=== PATIENT | female | born 1995 | race Two or more races ===

== ENCOUNTER → 2017-12-31 | Outpatient (CLI) | payer MEDICAID ==
[~2017-12-31] MED LIST: GLYB1.257 PO; PREN-96 PO
[2017-12-31 08:23] LABS: Lymphocytes # (auto) 2.4 uL; White Blood Cell 10.1 10^3/uL (4.4-10.8)
[2017-12-31 08:25] LABS: Basophils # (auto) 0 uL; Basophils % (auto) 0.4 % (0.0-2.0); Eosinophils # (auto) 0.1 uL; Eosinophils % (auto) 1.2 % (0.0-7.0); Hematocrit 35.8 % (36.0-46.0); Hemoglobin 11.9 g/dL (12.2-16.2); Lymphocytes % (auto) 24.3 % (10.0-50.0); Mean Corpuscular Hemoglobin 26.7 pg (28.0-32.0); Mean Corpuscular Hgb Conc. 33.4 g/dL (32.0-36.0); Mean Corpuscular Volume 80.1 fL (80.0-100.0); Monocytes # (auto) 0.5 uL; Monocytes % (auto) 4.5 % (0.0-12.0); Neutrophils % (auto) 69.6 % (37.0-80.0); Platelet Count (auto) 272 10^3/uL (140-450); Red Blood Cells 4.47 10^6/uL (4.0-5.20); Red Cell Distribution Width 14.3 % (11.8-14.3)
[2017-12-31 10:18] LABS: Alcohol, Urine < 3.0 mg/dL (0-5); Amphetamine Screen, Urine NEGATIVE (NEGATIVE); Barbiturate Scree,Urine NEGATIVE (NEGATIVE); Benzodiazephine Screen, Urine NEGATIVE (NEGATIVE); Cannabinoid Screen, Urine NEGATIVE (NEGATIVE); Cocaine Screen, Urine NEGATIVE (NEGATIVE); Opiate Scree,Urine NEGATIVE (NEGATIVE); Phencyclidine Screen, Urine NEGATIVE (NEGATIVE); RUBELLA Negative
== END | disposition home or self-care (01) ==
LOC: LAB 07:53
PROVIDERS: ATTEND Obstetrics & Gynecology
DX: Z34.80 Encounter for supervision of other normal pregnancy, unspecified trimester (principal); Z20.2 Contact with and (suspected) exposure to infections with a predominantly sexual mode of transmission; Z3A.00 Weeks of gestation of pregnancy not specified
CPT/HCPCS: 36415; 80307; 82951; 83036; 85025; 86703; 86762; 86850; 86900; 86901; 87086; 87340; 87591

== ENCOUNTER 2018-01-03 12:15 | Observation (INO) | payer MEDICAID | END 2018-01-03 13:25 | disposition home or self-care (01) | DRG 566 | LOC: LDRP 12:15 | PROVIDERS: ADMIT Specialist; ATTEND Specialist | DX: O24.419 Gestational diabetes mellitus in pregnancy, unspecified control (principal); O60.03 Preterm labor without delivery, third trimester; Z3A.31 31 weeks gestation of pregnancy | CPT/HCPCS: 59025; 81002; 82948; 82962; G0378 ==

== ENCOUNTER 2018-01-12 11:45 | Observation (INO) | payer MEDICAID ==
[2018-01-12] MEDS ORDERED: GLYB1.257 PO (12:11)
[2018-01-12] MEDS ORDERED: PREN-96 PO (12:12)
== END 2018-01-12 12:55 | disposition home or self-care (01) | DRG 566 ==
LOC: LDRP 11:45 → INTOOBSV 11:45
PROVIDERS: ADMIT Specialist; ATTEND Specialist
DX: O24.410 Gestational diabetes mellitus in pregnancy, diet controlled (principal); O99.323 Drug use complicating pregnancy, third trimester; F12.90 Cannabis use, unspecified, uncomplicated; Z3A.32 32 weeks gestation of pregnancy
CPT/HCPCS: 59025; 76818; 81002; 82962; G0378

== ENCOUNTER 2018-01-16 09:37 | Observation (INO) | payer MEDICAID | END 2018-01-16 11:45 | disposition home or self-care (01) | DRG 566 | LOC: LDRP 09:37 | PROVIDERS: ADMIT Obstetrics & Gynecology; ATTEND Obstetrics & Gynecology | DX: O24.419 Gestational diabetes mellitus in pregnancy, unspecified control (principal); O60.03 Preterm labor without delivery, third trimester; O99.323 Drug use complicating pregnancy, third trimester; F12.90 Cannabis use, unspecified, uncomplicated; Z3A.33 33 weeks gestation of pregnancy | CPT/HCPCS: 59025; 76818; 81002; 82948; 82962; G0378 ==

== ENCOUNTER → 2018-02-06 | Outpatient (CLI) | payer MEDICAID ==
[2018-02-06 10:52] LABS: Eosinophils # (auto) 0.1 uL; Monocytes # (auto) 0.5 uL; White Blood Cell 9.8 10^3/uL (4.4-10.8)
[2018-02-06 10:55] LABS: Basophils # (auto) 0 uL; Basophils % (auto) 0.4 % (0.0-2.0); Eosinophils % (auto) 0.8 % (0.0-7.0); Hematocrit 36.8 % (36.0-46.0); Hemoglobin 11.9 g/dL (12.2-16.2); Lymphocytes # (auto) 2.8 uL; Lymphocytes % (auto) 28.2 % (10.0-50.0); Mean Corpuscular Hemoglobin 25.3 pg (28.0-32.0); Mean Corpuscular Hgb Conc. 32.2 g/dL (32.0-36.0); Mean Corpuscular Volume 78.7 fL (80.0-100.0); Monocytes % (auto) 5.1 % (0.0-12.0); Neutrophils # (auto) 6.4 uL; Neutrophils % (auto) 65.5 % (37.0-80.0); Platelet Count (auto) 289 10^3/uL (140-450); Red Blood Cells 4.68 10^6/uL (4.0-5.20)
== END | disposition home or self-care (01) ==
LOC: LAB 09:48
PROVIDERS: ATTEND Obstetrics & Gynecology
DX: Z34.80 Encounter for supervision of other normal pregnancy, unspecified trimester (principal); Z3A.00 Weeks of gestation of pregnancy not specified
CPT/HCPCS: 36415; 83036; 85025; 87081

== ENCOUNTER 2018-02-27 10:45 | Observation (INO) | payer MEDICAID | END 2018-02-27 12:00 | disposition left against medical advice (07) | DRG 566 | LOC: LDRP 10:45 | PROVIDERS: ADMIT Obstetrics & Gynecology; ATTEND Obstetrics & Gynecology | DX: O24.113 Pre-existing type 2 diabetes mellitus, in pregnancy, third trimester (principal); E66.01 Morbid (severe) obesity due to excess calories; O99.213 Obesity complicating pregnancy, third trimester; Z3A.38 38 weeks gestation of pregnancy; Z91.19 Patient's noncompliance with other medical treatment and regimen | CPT/HCPCS: 36415; 59025; 81002; 82948; 82962; 83036; G0378 ==

== ENCOUNTER 2018-03-01 22:12 | Observation (INO) | payer MEDICAID ==
[~2018-03-01] VITALS: Ht 152.4 cm; Wt 99.8 kg
== END 2018-03-01 23:30 | disposition home or self-care (01) | DRG 566 ==
LOC: LDRP 22:12
PROVIDERS: ADMIT Obstetrics & Gynecology; ATTEND Obstetrics & Gynecology
DX: O24.419 Gestational diabetes mellitus in pregnancy, unspecified control (principal); O62.9 Abnormality of forces of labor, unspecified; Z3A.39 39 weeks gestation of pregnancy
CPT/HCPCS: 59025; 76818; 81002; 82948; 82962; G0378

== ENCOUNTER 2018-03-02 18:21 | Inpatient (IN) | payer MEDICAID ==
[~2018-03-02] VITALS: Ht 152.4 cm; Wt 99.8 kg
[2018-03-02] MEDS ORDERED: LACT. RINGERS/OXYTOCIN 20UNITS 1,000 ML IV SCH (19:00)
[2018-03-02] MEDS ORDERED: NALBUPHINE HCL 10 MG/1ml INJECTION IM PRN (19:00)
[2018-03-02] MEDS ORDERED: METHYLERGONOVINE MALEATE 0.2 MG/ML AMP IM PRN (19:00)
[2018-03-02] MEDS ORDERED: WITCH HAZEL-GLYCERIN PAD TOP PRN (19:00)
[2018-03-02] MEDS ORDERED: PHISODERM TOP SOLN 240ML BTL TOP PRN (19:00)
[2018-03-02] MEDS ORDERED: DERMOPLAST 60ML BOTTLE TOP PRN (19:00)
[2018-03-02 19:29] LABS: Basophils # (auto) 0.1 uL; Eosinophils # (auto) 0.1 uL; Mean Corpuscular Volume 78.9 fL (80.0-100.0); Monocytes # (auto) 0.5 uL; Neutrophils # (auto) 6.3 uL
[2018-03-02 19:30] LABS: Basophils % (auto) 1.1 % (0.0-2.0); Eosinophils % (auto) 0.7 % (0.0-7.0); Hematocrit 39.6 % (36.0-46.0); Hemoglobin 13.1 g/dL (12.2-16.2); Mean Corpuscular Hemoglobin 26.2 pg (28.0-32.0); Mean Corpuscular Hgb Conc. 33.1 g/dL (32.0-36.0); Monocytes % (auto) 4.6 % (0.0-12.0); Neutrophils % (auto) 63.6 % (37.0-80.0); Platelet Count (auto) 290 10^3/uL (140-450); Red Blood Cells 5.02 10^6/uL (4.0-5.20); Red Cell Distribution Width 16.1 % (11.8-14.3)
[2018-03-02] MEDS ORDERED: PENICILLIN G POT 5MIL/D5 50ML 50 ML IV ONE (19:30)
[2018-03-02] MEDS: LACTATED RINGER'S 1,000 ML IV SCH (19:40)
[2018-03-02] MEDS: PENICILLIN G POTASSIUM 2,500,000 UNITS in D5W 5% 50 ML IV SCH ×2 (19:40→23:30)
[2018-03-02 19:45] LABS: INR 0.87 (0.9-1.15); Partial Thromboplastin Time 28.7 sec (23.78-33.04); Prothrombin Time 9.4 sec (9.27-12.13)
[2018-03-02 19:49] LABS: Albumin 2.8 g/dL (3.4-5.0); BUN/Creatinine Ratio 13.5; Bilirubin, Total 0.2 mg/dL (0.2-1.0); Calcium 8.6 mg/dL (8.5-10.1); Potassium 4.1 mmol/L (3.5-5.1); Total Protein 7.2 g/dL (6.4-8.2)
[2018-03-02] MEDS ORDERED: LIDOCAINE 2% (LOCAL ANESTH.) PF 5ml SDV ONE ×2 (21:58→21:59)
[2018-03-03] MEDS: IBUPROFEN 600 MG TAB PO PRN ×2 (01:39→22:13)
[2018-03-03] MEDS ORDERED: LACT. RINGERS/OXYTOCIN 20UNITS 1,000 ML IV ONE (02:53)
[2018-03-03 03:00] VITALS: BP 127/59
[2018-03-03] MEDS: LACTATED RINGER'S 1,000 ML IV SCH (03:00)
[2018-03-03] MEDS: PENICILLIN G POTASSIUM 2,500,000 UNITS in D5W 5% 50 ML IV SCH (03:30)
[2018-03-03 07:15] VITALS: BP 113/71
[2018-03-03 11:10] VITALS: BP 109/60
[2018-03-03] MEDS ORDERED: TETANUS-DIPTH-ACEL PERTUSSIS 0.5ML SYRG IM ONE (12:00)
[2018-03-03 14:40] VITALS: BP 91/55
[2018-03-03 19:30] VITALS: BP 103/66
[2018-03-03 23:10] VITALS: BP 106/64
[2018-03-04 03:00] VITALS: BP 106/64
[2018-03-04 07:19] VITALS: BP 114/70
[2018-03-04 11:00] VITALS: BP 92/63
[2018-03-04 14:52] VITALS: BP 98/60
[2018-03-05 05:06] LABS: RPR Non Reactive (Non Reactive)
== END 2018-03-04 14:40 | disposition home or self-care (01) | DRG 560 ==
LOC: OBSVTOIN 18:21 → LDRP 18:21
PROVIDERS: ADMIT Obstetrics & Gynecology; ATTEND Obstetrics & Gynecology
PROC: 10E0XZZ Delivery of Products of Conception, External Approach (ICD-10-PCS; principal; 2018-03-02)
DX: O77.0 Labor and delivery complicated by meconium in amniotic fluid (principal); O24.429 Gestational diabetes mellitus in childbirth, unspecified control; O99.824 Streptococcus B carrier state complicating childbirth; Z37.0 Single live birth; Z3A.39 39 weeks gestation of pregnancy; Z91.19 Patient's noncompliance with other medical treatment and regimen; Z23 Encounter for immunization
CPT/HCPCS: 36415; 59025; 59409; 76818; 80053; 81002; 82948; 82962; 85025; 85610; 85730; 86592; 86850; 86900; 86901; 90715; 96365; 96366; 96372; 96374; 96375; G0378; J2001; J2540; J2590; J7060